=== PATIENT | female | born 1995 | race Two or more races ===

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

== ENCOUNTER 2017-06-25 18:46 | Emergency (ER) | payer OTHER ==
[2017-06-25 20:54] LABS: BASO % 0.6 % (0.0-1.0); EOS # 0.2 10^3/uL (0.0-0.50); HEMATOCRIT 42.8 % (36.0-47.0); HEMOGLOBIN 14.6 g/dl (12.0-16.0); IMMATURE GRANULOCYTE % 0.1 % (0-0); LYMPH # 1.9 10^3/uL (1.5-6.5); LYMPH % 28.6 % (24.0-44.0); MEAN CORPUSCULAR HEMOGLOBIN 30.2 pg (27.0-33.0); MEAN CORPUSCULAR HGB CONC 34.1 g/dl (32.0-36.5); MEAN CORPUSCULAR VOLUME 88.4 fl (80.0-96.0); MONO # 0.6 10^3/uL (0.0-0.8); MONO % 8.7 % (0.0-5.0); PLATELET COUNT, AUTOMATED 286 10^3/uL (150-450); RED BLOOD COUNT 4.84 10^6/uL (4.00-5.40); RED CELL DISTRIBUTION WIDTH 11.9 % (11.5-14.5); WHITE BLOOD COUNT 6.8 10^3/uL (4.0-10.0)
[2017-06-25 21:11] LABS: CONTROL LINE HCG INT CTR LINE PRESENT; HCG, SERUM QUALITATIVE NEGATIVE (NEGATIVE)
== END 2017-06-25 22:01 | disposition home or self-care (01) ==
LOC: M ED 18:46
DX: N92.0 Excessive and frequent menstruation with regular cycle (principal)
CPT/HCPCS: 84703

== ENCOUNTER 2017-07-01 09:42 | Emergency (ER) | payer OTHER ==
[2017-07-01] MEDS ORDERED: GASTROGRAFIN SOLUTION 30ML (Q9963) As Ordered (10:48)
[2017-07-01] MEDS: diphenhydrAMINE INJ 50MG/ML VIAL (J1200) IV (10:58)
[2017-07-01] MEDS: METOCLOPRAMIDE INJ 10MG/2ML VIAL (J2765) IV (10:58)
[2017-07-01] MEDS: KETOROLAC 30 MG/ML VIAL (J1885) IV (10:58)
[2017-07-01] MEDS: GASTROGRAFIN SOLUTION 30ML PO ×2 (11:00→11:30)
[2017-07-01 11:06] LABS: BASO % 0.1 % (0.0-1.0); HEMOGLOBIN 14.7 g/dl (12.0-16.0); IMMATURE GRANULOCYTE % 0.3 % (0-0); LYMPH # 0.7 10^3/uL (1.5-6.5); LYMPH % 9.7 % (24.0-44.0); MEAN CORPUSCULAR HEMOGLOBIN 29.6 pg (27.0-33.0); MEAN CORPUSCULAR HGB CONC 34.2 g/dl (32.0-36.5); MEAN CORPUSCULAR VOLUME 86.7 fl (80.0-96.0); MONO # 0.7 10^3/uL (0.0-0.8); MONO % 9.1 % (0.0-5.0); NEUTROPHILS # 5.8 10^3/uL (1.8-7.7); NEUTROPHILS % 80.8 % (36.0-66.0); PLATELET COUNT, AUTOMATED 255 10^3/uL (150-450); RED BLOOD COUNT 4.96 10^6/uL (4.00-5.40); RED CELL DISTRIBUTION WIDTH 11.7 % (11.5-14.5); WHITE BLOOD COUNT 7.2 10^3/uL (4.0-10.0)
[2017-07-01 11:14] LABS: AMORPHOUS SEDIMENT SMALL (NEGATIVE); APPEARANCE, URINE CLOUDY (CLEAR); BACTERIA, URINE AUTO 2+ (NEGATIVE); BILIRUBIN, URINE AUTO NEGATIVE (NEGATIVE); BLOOD, URINE BLOOD 2+ (NEGATIVE); COLOR, URINE AMBER (YELLOW); GLUCOSE, URINE (UA) AUTO NEGATIVE (NEGATIVE); KETONE, URINE AUTO 2+ mg/dL (NEGATIVE); LEUKOCYTE ESTERASE, URINE AUTO 3+ (NEGATIVE); MUCUS, URINE SMALL (NEGATIVE); NITRITE, URINE AUTO POSITIVE (NEGATIVE); PROTEIN, URINE AUTO 1+ mg/dL (NEGATIVE); RBC, URINE AUTO 7 /HPF (0-3); RENAL EPITHELIAL CELLS 1 /HPF; SPECIFIC GRAVITY URINE AUTO 1.015 (1.002-1.035); SQUAMOUS EPITHELIAL CELL UR AU 3 /HPF (0-6); TRANSITIONAL EPITHELIAL AUTO <1 /HPF; WBC, URINE AUTO TNTC /HPF (0-3)
[2017-07-01 11:37] LABS: ALBUMIN 4.2 GM/DL (3.2-5.2); ALKALINE PHOSPHATASE 61 U/L (45-117); ALT/SGPT 12 U/L (12-78); AMYLASE 47 U/L (25-115); ANION GAP 9 MEQ/L (8-16); AST/SGOT 16 U/L (7-37); BILIRUBIN,TOTAL 0.9 MG/DL (0.2-1.0); BLOOD UREA NITROGEN 7 MG/DL (7-18); C REACTIVE PROTEIN QUANTITATIV 4.49 MG/DL (0.00-0.30); CALCIUM LEVEL 8.9 MG/DL (8.5-10.1); CARBON DIOXIDE LEVEL 25 MEQ/L (21-32); CHLORIDE LEVEL 101 MEQ/L (98-107); CREATININE FOR GFR 0.75 MG/DL (0.55-1.02); GLUCOSE, FASTING 86 MG/DL (70-100); LIPASE 90 U/L (73-393); POTASSIUM SERUM 3.5 MEQ/L (3.5-5.1); SODIUM LEVEL 135 MEQ/L (136-145); TOTAL PROTEIN 8.4 GM/DL (6.4-8.2)
[2017-07-01] MEDS ORDERED: ISOVUE-370 76% 100ML VIAL (Q9967) As Ordered (12:08)
== END 2017-07-01 13:44 | disposition home or self-care (01) ==
LOC: M ED 09:42
DX: N39.0 Urinary tract infection, site not specified (principal); R10.12 Left upper quadrant pain; R51 Headache; R11.0 Nausea
CPT/HCPCS: J1200

== ENCOUNTER 2018-03-03 18:56 | Emergency (ER) | payer OTHER | END 2018-03-03 19:24 | disposition home or self-care (01) | LOC: M ED 18:56 | DX: J30.9 Allergic rhinitis, unspecified (principal) | CPT/HCPCS: 99283 ==

== ENCOUNTER 2018-06-17 15:13 | Emergency (ER) | payer OTHER ==
[~2018-06-17] VITALS: Ht 160 cm; Wt 70.5 kg
[~2018-06-17 15:13] MED LIST: FLON1SPR NARES; IBUP-1022 PO; MACR100C43 PO; MUCI600T37 PO; ZYRT10CA PO
[2018-06-17] MEDS ORDERED: PRENTAB55 PO (15:21)
[2018-06-17] MEDS ORDERED: METOCLOPRAMIDE 10 MG TAB PO ONE (16:30)
[2018-06-17] MEDS ORDERED: REGL10TA6 PO (17:16)
[2018-06-17 17:20] VITALS: BP 114/58
== END 2018-06-17 17:25 | disposition home or self-care (01) ==
LOC: M ED 15:13
DX: O21.9 Vomiting of pregnancy, unspecified (principal); Z3A.08 8 weeks gestation of pregnancy

== ENCOUNTER 2018-07-22 07:38 | Emergency (ER) | payer OTHER ==
[~2018-07-22] VITALS: Ht 160 cm; Wt 69.1 kg
[~2018-07-22 07:38] MED LIST changes: +PRENTAB55 PO; +REGL10TA6 PO
[2018-07-22] MEDS ORDERED: NS 1,000 ML IV ONE (08:30)
[2018-07-22 08:42] LABS: AMORPHOUS SEDIMENT MODERATE (NEGATIVE); APPEARANCE, URINE TURBID (CLEAR); BACTERIA, URINE AUTO 3+ (NEGATIVE); BILIRUBIN, URINE AUTO NEGATIVE (NEGATIVE); BLOOD, URINE BLOOD 2+ (NEGATIVE); COLOR, URINE AMBER (YELLOW); GLUCOSE, URINE (UA) AUTO NEGATIVE (NEGATIVE); KETONE, URINE AUTO TRACE mg/dL (NEGATIVE); LEUKOCYTE ESTERASE, URINE AUTO 3+ (NEGATIVE); MUCUS, URINE SMALL (NEGATIVE); NITRITE, URINE AUTO POSITIVE (NEGATIVE); PROTEIN, URINE AUTO 1+ mg/dL (NEGATIVE); RBC, URINE AUTO 20 /HPF (0-3); SPECIFIC GRAVITY URINE AUTO 1.018 (1.002-1.035); SQUAMOUS EPITHELIAL CELL UR AU 5 /HPF (0-6); TRANSITIONAL EPITHELIAL AUTO 1 /HPF; WBC, URINE AUTO 173 /HPF (0-3)
[2018-07-22 08:49] LABS: BASO % 0.4 % (0.0-1.0); EOS # 0.4 10^3/uL (0.0-0.50); EOS % 8.1 % (0.0-3.0); HEMATOCRIT 39.3 % (36.0-47.0); HEMOGLOBIN 13.7 g/dl (12.0-15.5); LYMPH # 0.8 10^3/uL (1.5-6.5); LYMPH % 16.6 % (24.0-44.0); MEAN CORPUSCULAR HEMOGLOBIN 29.9 pg (27.0-33.0); MEAN CORPUSCULAR HGB CONC 34.9 g/dl (32.0-36.5); MEAN CORPUSCULAR VOLUME 85.8 fl (80.0-96.0); MONO # 0.3 10^3/uL (0.0-0.8); MONO % 7.2 % (0.0-5.0); NEUTROPHILS # 3.2 10^3/uL (1.8-7.7); NEUTROPHILS % 67.3 % (36.0-66.0); PLATELET COUNT, AUTOMATED 244 10^3/uL (150-450); RED BLOOD COUNT 4.58 10^6/uL (4.00-5.40); WHITE BLOOD COUNT 4.7 10^3/uL (4.0-10.0)
[2018-07-22] MEDS ORDERED: cefTRIAXone SOD 1 GM in D5W MINI-BAG PLUS 50 ML IV ONE (09:00)
[2018-07-22 09:09] LABS: ALBUMIN 3.5 GM/DL (3.2-5.2); ALT/SGPT 17 U/L (12-78); BILIRUBIN,DIRECT 0.1 MG/DL (0.0-0.2); BILIRUBIN,TOTAL 0.3 MG/DL (0.2-1.0); BLOOD UREA NITROGEN 4 MG/DL (7-18); CALCIUM LEVEL 8.5 MG/DL (8.5-10.1); CARBON DIOXIDE LEVEL 24 MEQ/L (21-32); CHLORIDE LEVEL 106 MEQ/L (98-107); CREATININE FOR GFR 0.48 MG/DL (0.55-1.30); GLUCOSE, FASTING 84 MG/DL (70-100); LIPASE 91 U/L (73-393); POTASSIUM SERUM 3.7 MEQ/L (3.5-5.1); SODIUM LEVEL 137 MEQ/L (136-145)
[2018-07-22] MEDS ORDERED: KEFL500C17 PO (09:54)
[2018-07-22 10:00] VITALS: BP 126/61
== END 2018-07-22 10:10 | disposition home or self-care (01) ==
LOC: M ED 07:38
DX: O23.40 Unspecified infection of urinary tract in pregnancy, unspecified trimester (principal); Z79.899 Other long term (current) drug therapy; Z3A.00 Weeks of gestation of pregnancy not specified
CPT/HCPCS: 36415; 80048; 80076; 81001; 83690; 85025; 86850; 86900; 86901; 87088; 87186; 93041; 99284; J0696

== ENCOUNTER 2018-07-24 07:28 | Emergency (ER) | payer OTHER ==
[~2018-07-24] VITALS: Ht 160 cm; Wt 69.1 kg
[~2018-07-24 07:28] MED LIST changes: +KEFL500C17 PO
[2018-07-24] MEDS ORDERED: NS 1,000 ML IV ONE (08:30)
[2018-07-24 09:40] LABS: ALBUMIN 3.6 GM/DL (3.2-5.2); ALT/SGPT 12 U/L (12-78); AMYLASE 60 U/L (25-115); BILIRUBIN,DIRECT 0.1 MG/DL (0.0-0.2); BILIRUBIN,TOTAL 0.5 MG/DL (0.2-1.0); BLOOD UREA NITROGEN 4 MG/DL (7-18); CALCIUM LEVEL 8.6 MG/DL (8.5-10.1); CARBON DIOXIDE LEVEL 23 MEQ/L (21-32); CHLORIDE LEVEL 107 MEQ/L (98-107); CREATININE FOR GFR 0.37 MG/DL (0.55-1.30); GLUCOSE, FASTING 83 MG/DL (70-100); LIPASE 93 U/L (73-393); POTASSIUM SERUM 4.2 MEQ/L (3.5-5.1); SODIUM LEVEL 137 MEQ/L (136-145); TOTAL PROTEIN 7.1 GM/DL (6.4-8.2)
[2018-07-24 10:07] LABS: BASO % 0.2 % (0.0-1.0); EOS # 0.4 10^3/uL (0.0-0.50); EOS % 5.7 % (0.0-3.0); HEMATOCRIT 37.1 % (36.0-47.0); HEMOGLOBIN 12.9 g/dl (12.0-15.5); LYMPH # 0.8 10^3/uL (1.5-6.5); LYMPH % 12.1 % (24.0-44.0); MEAN CORPUSCULAR HEMOGLOBIN 29.9 pg (27.0-33.0); MEAN CORPUSCULAR HGB CONC 34.8 g/dl (32.0-36.5); MEAN CORPUSCULAR VOLUME 86.1 fl (80.0-96.0); MONO # 0.4 10^3/uL (0.0-0.8); MONO % 5.9 % (0.0-5.0); NEUTROPHILS # 4.8 10^3/uL (1.8-7.7); NEUTROPHILS % 75.8 % (36.0-66.0); PLATELET COUNT, AUTOMATED 215 10^3/uL (150-450); RED BLOOD COUNT 4.31 10^6/uL (4.00-5.40); WHITE BLOOD COUNT 6.3 10^3/uL (4.0-10.0)
[2018-07-24 10:25] VITALS: BP 117/89
--- NOTE | 2018-07-24 10:40 | REP ---
BILATERAL RENAL ULTRASOUND: 07/24/2018. Clinical history: Flank pain in a 13-week . Comparison: CT 07/01/2017. Findings: The right kidney is 11.1 x 4.1 x 4.7 cm. The left kidney measures 11.6 x 4.6 x 6 cm. Cortical thickness and echogenicity is normal bilaterally. There is no hydronephrosis or hydroureter on either side. I see no stone, cyst or solid mass and no perinephric fluid. The bladder could not be visualized as she emptied it just before this examination. Impression: 1. Bilateral symmetric normal renal size, cortical thickness and echogenicity and no sign of hydronephrosis, hydroureter, solid or cystic mass. No perinephric fluid. Cortical echogenicity, symmetric and normal. Negative bilateral kidneys. 2. Bladder not seen as it was just emptied prior to the examination. Electronically Signed by Ramu Ellis MD 07/24/2018 05:47 P
--- NOTE | 2018-07-24 11:13 | REP ---
FIRST TRIMESTER OB ULTRASOUND: 07/24/2018. Clinical history: Vaginal bleeding. Comparison: There are no prior studies for this . The patient had a renal ultrasound today. Findings: There is a single intrauterine gestation in transverse lie. There is a gestational sac in the body and fundus of the uterus. heart activity noted at 152 and regular. There is no evidence of an abruption. Amniotic fluid volume is visually normal. Placenta developing anteriorly. biometry: CRL 8.1 cm 14 weeks BPD 2.8 cm 15 weeks HC 10.6 cm 15 weeks AC 7.9 cm 14 weeks 2 days FL 1.5 cm 14 weeks 2 days HL 1.4 cm 13 weeks 6 days Measurement of the head to abdominal circumference ratio is 1.34, upper range of normal 1.3. By LMP of 01/24/2019 giving 13 week 5 day gestation, BPD and HC are greater than 95th percentile. No anatomic details can be discerned at this time. Impression: 1. Single intrauterine gestation at 14 weeks 3 days by average ultrasound age today, 13 weeks 5 days by LMP. EDC 01/24/2019 by LMP. EDC 01/19/2019 by composite ultrasound criteria. 2. Transverse lie with anterior placenta development and no subchorionic bleed. Heart rate 152. Electronically Signed by Ramu Ellis MD 07/24/2018 05:47 P
== END 2018-07-24 10:32 | disposition home or self-care (01) ==
LOC: M ED 07:28
DX: O23.11 Infections of bladder in pregnancy, first trimester (principal); Z87.440 Personal history of urinary (tract) infections; Z79.2 Long term (current) use of antibiotics; Z3A.13 13 weeks gestation of pregnancy